=== PATIENT | male | born 1995 | race Caucasian/White ===

== ENCOUNTER 2019-10-12 16:53 | Emergency (ER) | payer OTHER ==
[2019-10-12] MEDS ORDERED: Diphtheria,Pertussis(Acell),Tetanus Vaccine 0.5 ML Syringe IM ONE (18:14)
[2019-10-12] MEDS ORDERED: Lidocaine 1% 10 ML MDV INJECT ONE (18:14)
--- NOTE | 2019-10-12 19:00 | EDM.PDOC ---
ED HPI GENERAL MEDICAL PROBLEM - General Chief Complaint: Upper Extremity Injury/Pain Stated Complaint: L RING FINGER INJURY Time Seen by Provider: 10/12/19 18:06 Source of Information: Reports: Patient, RN Notes Reviewed History Limitations: Reports: No Limitations - History of Present Illness INITIAL COMMENTS - FREE TEXT/NARRATIVE: Patient is a 23-year-old male who presents to the ED for the evaluation of a left ring finger injury. Patient notes while he was at work today at around 2: 30 PM, he was was working with a ruben and a tire, and got his hand entrapped. This resulted in a crush/smash injury to his left ring finger. Patient was unsure of his last tetanus booster. The laceration on his left ring finger is on the anterior surface over the DIP, and is around 2 cm. Patient has no loss of range of motion to the extremity. He states there is a little bit of numbness to the fingertip, but leave this is due to the swelling in the area. He did not take any sort of pain medications at home for this. Left Finger-Ring Pain Score (Numeric/FACES): 5 - Related Data Allergies Allergy/AdvReac Type Severity Reaction Status Date / Time No Known Allergies Allergy Verified 10/12/19 17:35 Home Meds: Home Meds . [No Known Home Meds] 10/12/19 [History] Past Medical History Dermatologic History: Reports: Other (See Below) Other Dermatologic History: warts removed from foot and hands - Past Surgical History HEENT Surgical History: Reports: Oral Surgery Social & Family History - Tobacco Use Smoking Status *Q: Current Every Day Smoker Years of Tobacco use: 3 Packs/Tins Daily: 0.7 - Caffeine Use Caffeine Use: Reports: Coffee, Soda - Recreational Drug Use Recreational Drug Use: No Review of Systems - Review of Systems Review Of Systems: Comprehensive ROS is negative, except as noted in HPI. Skin: Reports: Wound (see HPI) Neurological: Reports: Numbness (to tip of left ring finger) ED EXAM, GENERAL - Physical Exam Exam: See Below Exam Limited By: No Limitations General Appearance: Alert, WD/WN, No Apparent Distress Respiratory/Chest: No Respiratory Distress, Lungs Clear, Normal Breath Sounds, No Accessory Muscle Use, Chest Non-Tender Cardiovascular: Normal Peripheral Pulses, Regular Rate, Rhythm, No Murmur Peripheral Pulses: 3+: Radial (L), Radial (R) Extremities: Normal Range of Motion, Normal Capillary Refill Neurological: Alert, Oriented, Normal Cognition, No Motor/Sensory Deficits Psychiatric: Normal Affect, Normal Mood Skin Exam: Warm, Dry, Normal Color, No Rash, Wound/Incision (2 cm jagged laceration to the left anterior ring finger over the DIP.) ED TRAUMA EXTREMITY PROCEDURES - Laceration/Wound Repair Left Anterior Distal Digit - 4th (Ring) Lac/Wound Length In cm: 2 Appearance: Irregular (small skin flap noted. L shaped lac), Mildly Contaminated (pt has visibly soiled hands from his job.) Distal NVT: Neuro & Vascular Intact, No Tendon Injury Anesthetic Type: Local Local Anesthesia - Lidocaine (Xylocaine): 1% Plain Local Anesthetic Volume: 3cc Skin Prep: Chlorhexidine (Hibiciens), Saline Exploration/Debridement/Repair: Wound Explored, In a Bloodless Field, Explored to Base, No Foreign Material Found Closed With: Sutures Suture Size: 4-0 # of Sutures: 5 Sterile Dressing Applied: Nurse Tetanus Status Addressed: Yes (updated at today's visit.) Complications: No Course - Vital Signs Last Recorded V/S: Last Vital Signs Temp 99.9 F 10/12/19 17:39 Pulse 104 H 10/12/19 17:39 Resp 20 10/12/19 17:39 BP 151/97 H 10/12/19 17:39 Pulse Ox 95 10/12/19 17:39 - Orders/Labs/Meds Orders: Active Orders 24 hr Category Date Time Status Vaccines to be Administered [RC] PER UNIT ROUTINE Care 10/12/19 18:14 Ordered Hand Comp Min 3V Lt [CR] Stat Exams 10/12/19 18:05 Ordered Meds: Medications Discontinued Medications Generic Name Dose Route Start Last Admin Trade Name Freq PRN Reason Stop Dose Admin Diphtheria/Tetanus/Acell Pertussis 0.5 ml 10/12/19 18:14 10/12/19 18:35 Adacel IM 10/12/19 18:15 0.5 ml .ONCE ONE Administration Lidocaine HCl 10 ml 10/12/19 18:14 10/12/19 18:36 Xylocaine 1% INJECT 10/12/19 18:15 10 ml ONETIME ONE Administration Departure - Departure Time of Disposition: 19:01 Disposition: Home, Self-Care 01 Condition: Fair Clinical Impression: Laceration of ring finger Qualifiers: Encounter type: initial encounter Damage to nail status: without damage Foreign body presence: without foreign body Laterality: left Qualified Code(s): S61.215A - Laceration without foreign body of left ring finger without damage to nail, initial encounter - Discharge Information *PRESCRIPTION DRUG MONITORING PROGRAM REVIEWED*: No *COPY OF PRESCRIPTION DRUG MONITORING REPORT IN PATIENT LUZ: No Instructions: Sutured Wound Care, [id number] Referrals: PCP,None [Primary Care Provider] - Forms: ED Department Discharge Additional Instructions: You have been evaluated in the ED for your laceration. Sutures will need to stay in for 14 days. You were given a splint to help immobilize the finger. You may return to the ED or clinic for removal. Please keep this area clean and dry, you may cleanse with regular soap and water. No vigorous scrubbing. Watch out for signs of infection like increased redness, swelling, pain at the laceration site, or if you should develop any fevers or chills. Please return to ED if your symptoms change or worsen. - My Orders Last 24 Hours: My Active Orders 10/12/19 18:05 Hand Comp Min 3V Lt [CR] Stat 10/12/19 18:14 Vaccines to be Administered [RC] PER UNIT ROUTINE - Assessment/Plan Last 24 Hours: My Active Orders 10/12/19 18:05 Hand Comp Min 3V Lt [CR] Stat 10/12/19 18:14 Vaccines to be Administered [RC] PER UNIT ROUTINE
--- NOTE | 2019-10-15 06:36 | CR ---
Left hand: Four views of the left hand were obtained. Comparison: No prior left hand exam. Joint spaces are preserved. No fracture, dislocation or other bony abnormality is seen. Impression: 1. No abnormality is identified on left hand exam. Diagnostic code #1 This report was dictated in [place] Standard Time
== END 2019-10-12 20:14 | disposition home or self-care (01) ==
LOC: JD.ED 16:53
DX: S61.215A Laceration without foreign body of left ring finger without damage to nail, initial encounter (principal); Z23 Encounter for immunization; F17.210 Nicotine dependence, cigarettes, uncomplicated; W23.0XXA Caught, crushed, jammed, or pinched between moving objects, initial encounter; Y99.0 Civilian activity done for income or pay
CPT/HCPCS: 12001; 73130-26-LT; 73130-LT; 90715; 99282; 99283-25; G0008; J2001

== ENCOUNTER 2020-03-09 18:31 | Emergency (ER) | payer BC, OTHER ==
[2020-03-09] MEDS ORDERED: Lidocaine 1% 10 ML MDV INJECT ONE (18:54)
--- NOTE | 2020-03-09 18:59 | EDM.PDOC ---
ED HPI GENERAL MEDICAL PROBLEM - General Chief Complaint: Laceration Stated Complaint: LACERATION TO LEG Time Seen by Provider: 03/09/20 18:46 Source of Information: Reports: Patient History Limitations: Reports: No Limitations - History of Present Illness INITIAL COMMENTS - FREE TEXT/NARRATIVE: Dionisio Steinberg 24-year-old male who presents the emergency room chief complaints of right inner thigh laceration. Patient reports while cutting some insulation with his pocket knife, knife slipped cutting his thigh. He reports his tetanus shot is up-to-date. He denies any pain numbness or tingling. Parent distress at this time. Onset: Today, Sudden Onset Date: 03/09/20 Onset Time: 18:00 Location: Reports: Lower Extremity, Right Severity: Mild Improves with: Reports: None Worsens with: Reports: None Associated Symptoms: Reports: No Other Symptoms Right Thigh Pain Score (Numeric/FACES): 3 - Related Data Allergies Allergy/AdvReac Type Severity Reaction Status Date / Time No Known Allergies Allergy Verified 03/09/20 18:46 Home Meds: Home Meds . [No Known Home Meds] 10/12/19 [History] Past Medical History Dermatologic History: Reports: Other (See Below) Other Dermatologic History: warts removed from foot and hands - Past Surgical History HEENT Surgical History: Reports: Oral Surgery Social & Family History - Caffeine Use Caffeine Use: Reports: Coffee, Soda ED ROS GENERAL - Review of Systems Review Of Systems: See Below Constitutional: Reports: No Symptoms HEENT: Reports: No Symptoms Respiratory: Reports: No Symptoms Cardiovascular: Reports: No Symptoms Endocrine: Reports: No Symptoms GI/Abdominal: Reports: No Symptoms : Reports: No Symptoms Musculoskeletal: Reports: No Symptoms Skin: Reports: Other (Right inner thigh 2 cm laceration) Neurological: Reports: No Symptoms Psychiatric: Reports: No Symptoms Hematologic/Lymphatic: Reports: No Symptoms Immunologic: Reports: No Symptoms ED EXAM, SKIN/RASH Exam: See Below Exam Limited By: No Limitations General Appearance: Alert, WD/WN, No Apparent Distress Peripheral Pulses: 4+: Posterior Tibial (R), Dorsalis Pedis (R) Skin: Warm, Dry, Normal Color, No Rash, Other (Right lower thigh 2 cm laceration.) Lymphatic: No Adenopathy ED SKIN PROCEDURES - Laceration/Wound Repair Right Lower Anterior Lateral Thigh Appearance: Clean Distal NVT: Neuro & Vascular Intact Anesthetic Type: Local Local Anesthesia - Lidocaine (Xylocaine): 1% Plain Local Anesthetic Volume: 2cc Skin Prep: Providone-Iodine (Betadine) Exploration/Debridement/Repair: No Foreign Material Found Closed with: Sutures Lac/Wound length In cm: 2 Suture Size: 5-0 # of Sutures: 3 Suture Type: Prolene Sterile Dressing Applied: Provider Tetanus Status Addressed: Yes Complications: No Progress/Comments: Patient tolerated procedure well. Course - Vital Signs Text/Narrative:: Dionisio Steinberg is a 24 y/o male who is to the emergency room with chief complaints of thigh laceration. He reports while using his pocket knife to cut insulation the knife slipped cutting his right thigh. Shot is up-to-date. Received laceration repair his condition improved. I will discharge home with instructions to follow-up with his PCP in 7 to 10 days to have his sutures removed. Patient on wound care. I do not feel that he needs antibiotics. Instructed patient to return to the emergency room for any new or acute worsening symptoms. Patient verbalized understanding this, plan for discharge. Last Recorded V/S: Last Vital Signs Temp 98.1 F 03/09/20 18:40 Pulse 94 03/09/20 18:40 Resp 16 03/09/20 18:40 BP 144/91 H 03/09/20 18:40 Pulse Ox 95 03/09/20 18:40 Departure - Departure Time of Disposition: 19:17 Disposition: Home, Self-Care 01 Clinical Impression: Thigh laceration Qualifiers: Encounter type: initial encounter Laterality: right Qualified Code(s): S71.111A - Laceration without foreign body, right thigh, initial encounter - Discharge Information Instructions: Sutures, Alexandra, or Adhesive Wound Closure, [id number] Referrals: PCP,None [Primary Care Provider] - Additional Instructions: You were seen and evaluated for right thigh laceration. Cleansed the area with soap and water and keep it dry. Follow-up with your PCP in 7 to 10 days to have sutures removed. Look for signs of infection which includes fever 101 or greater redness and warmth at the site and any drainage. Return to the emergency room for any new or acute worsening symptoms. Sepsis Event Note - Evaluation Sepsis Screening Result: No Definite Risk - Focused Exam Vital Signs: Vital Signs Temp Pulse Resp BP Pulse Ox 03/09/20 18:40 98.1 F 94 16 144/91 H 95 Date Exam was Performed: 03/09/20 Time Exam was Performed: 18:54
== END 2020-03-09 19:27 | disposition home or self-care (01) ==
LOC: JD.ED 18:31
DX: S71.111A Laceration without foreign body, right thigh, initial encounter (principal); W26.0XXA Contact with knife, initial encounter
CPT/HCPCS: 12001; 99282; J2001